=== PATIENT | male | born 1960 | race Two or more races ===

== ENCOUNTER → 2024-07-03 | Outpatient (BNVA) | payer MEDICAID, SELFPAY | END | disposition home or self-care (01) | PROVIDERS: PCP Nurse Practitioner Family; Referring Provider Nurse Practitioner Family; Visit Provider Nurse Practitioner Family | DX: E11.9 Type 2 diabetes mellitus without complications (principal); Z79.4 Long term (current) use of insulin; Z71.2 Person consulting for explanation of examination or test findings; E78.5 Hyperlipidemia, unspecified; I10 Essential (primary) hypertension; R94.5 Abnormal results of liver function studies | CPT/HCPCS: 99212; G0463 ==

== ENCOUNTER → 2024-07-07 | Outpatient (CLI) | payer MEDICAID, SELFPAY ==
--- NOTE | 2024-07-07 10:00 | XR_ITS ---
Examination: Abdomen sonogram, complete Date and time of exam: July 07, 2024 1031 hours INDICATIONS: Elevated liver enzymes on laboratory examination performed one week ago. Technique: Multiple real-time grayscale transabdominal sonographic images of the abdomen have been obtained. Findings: Normal gallbladder Normal common bile duct 0.2 cm Pancreas obscured by bowel gas Mid and distal aorta are not enlarged Liver 14.2 cm fatty infiltration smooth contour Normal hepatopedal portal venous flow Patent IVC Right kidney 11.6 x 6.6 x 7.0 cm cortex 1.9 cm Left kidney 11.5 x 7.1 x 5.8 cm cortex 1.7 cm Mild renal parenchymal scar formation No hydronephrosis Spleen 8.1 cm IMPRESSION: Normal gallbladder Fatty liver Mild bilateral renal parenchymal scar formation
== END | disposition home or self-care (01) ==
LOC: CDIM 09:56
PROVIDERS: PCP Nurse Practitioner Family; Referring Provider Nurse Practitioner Family; Visit Provider Nurse Practitioner Family
DX: K76.0 Fatty (change of) liver, not elsewhere classified (principal); N28.89 Other specified disorders of kidney and ureter
CPT/HCPCS: 76700

== ENCOUNTER → 2024-10-12 | Outpatient (BNVA) | payer MEDICAID, SELFPAY | END | disposition home or self-care (01) | PROVIDERS: PCP Nurse Practitioner Family; Referring Provider Nurse Practitioner Family; Visit Provider Nurse Practitioner Family | DX: Z71.2 Person consulting for explanation of examination or test findings (principal); E11.9 Type 2 diabetes mellitus without complications; Z79.4 Long term (current) use of insulin; E78.5 Hyperlipidemia, unspecified; R94.5 Abnormal results of liver function studies | CPT/HCPCS: 99212; G0463 ==

== ENCOUNTER → 2024-12-23 | Outpatient (BNVA) | payer MEDICAID, SELFPAY | END | disposition home or self-care (01) | PROVIDERS: PCP Nurse Practitioner Family; Referring Provider Nurse Practitioner Family; Visit Provider Nurse Practitioner Family | DX: Z00.01 Encounter for general adult medical examination with abnormal findings (principal); E11.9 Type 2 diabetes mellitus without complications; I10 Essential (primary) hypertension; Z79.4 Long term (current) use of insulin; E66.9 Obesity, unspecified; Z68.30 Body mass index [BMI] 30.0-30.9, adult; E78.5 Hyperlipidemia, unspecified; E55.9 Vitamin D deficiency, unspecified; Z23 Encounter for immunization; Z12.5 Encounter for screening for malignant neoplasm of prostate; Z11.3 Encounter for screening for infections with a predominantly sexual mode of transmission | CPT/HCPCS: 90471; 90677; 90715; 93005; 99173; 99215; 99396; G0009; G0439 ==

== ENCOUNTER → 2025-01-08 | Outpatient (BNVA) | payer MEDICAID, SELFPAY | END | disposition home or self-care (01) | PROVIDERS: PCP Nurse Practitioner Primary Care; Referring Provider Nurse Practitioner Primary Care; Visit Provider Nurse Practitioner Primary Care | DX: E78.5 Hyperlipidemia, unspecified (principal); E11.9 Type 2 diabetes mellitus without complications; I10 Essential (primary) hypertension; R80.9 Proteinuria, unspecified | CPT/HCPCS: 99212; G0463 ==

== ENCOUNTER → 2025-01-13 | Outpatient (BNVA) | payer MEDICAID, SELFPAY | END | disposition home or self-care (01) | PROVIDERS: PCP Nurse Practitioner Family; Referring Provider Nurse Practitioner Family; Visit Provider Nurse Practitioner Family | DX: B35.1 Tinea unguium (principal); E11.9 Type 2 diabetes mellitus without complications | CPT/HCPCS: 99214 ==

== ENCOUNTER → 2025-03-11 | Outpatient (BNVA) | payer MEDICAID, SELFPAY | END | disposition home or self-care (01) | PROVIDERS: PCP Nurse Practitioner Family; Referring Provider Nurse Practitioner Family; Visit Provider Nurse Practitioner Family | DX: Z71.2 Person consulting for explanation of examination or test findings (principal); B35.1 Tinea unguium | CPT/HCPCS: 99212; G0463 ==

== ENCOUNTER → 2025-04-22 | Outpatient (BNVA) | payer MEDICAID, SELFPAY | END | disposition home or self-care (01) | PROVIDERS: PCP Nurse Practitioner Family; Referring Provider Nurse Practitioner Family; Visit Provider Nurse Practitioner Family | DX: Z71.2 Person consulting for explanation of examination or test findings (principal); E11.9 Type 2 diabetes mellitus without complications; Z79.4 Long term (current) use of insulin; I10 Essential (primary) hypertension; E78.5 Hyperlipidemia, unspecified; Z23 Encounter for immunization | CPT/HCPCS: 82948; 90471; 90700; 99214; G0008 ==

== ENCOUNTER → 2025-05-25 | Outpatient (BNVA) | payer MEDICAID, SELFPAY | END | disposition home or self-care (01) | PROVIDERS: PCP Nurse Practitioner Family; Referring Provider Nurse Practitioner Family; Visit Provider Nurse Practitioner Family | DX: I10 Essential (primary) hypertension (principal) | CPT/HCPCS: 99213 ==